=== PATIENT | female | born 1990 | race African-American/Black ===

== ENCOUNTER 2016-07-25 08:00 | Inpatient (IN) | payer OTHER ==
[2016-07-25] MEDS ORDERED: ELECTROLYTE-148 SOLN 500 ML IV ONE (08:05)
[2016-07-25] MEDS ORDERED: CITRIC ACID/SODIUM CITRATE 30 ML UNIT-DOSE CUP PO ONE (08:05)
[2016-07-25] MEDS ORDERED: ELECTROLYTE-148 SOLN 1,000 ML IV SCH (08:35)
[2016-07-25 08:58] VITALS: BMI 37.8
--- NOTE | 2016-07-25 09:38 | HP ---
Past Medical History - Primary Care Physician PCP:: Raji Camargo - Admission Chief Complaint: 26 yo P2 with twin at EGA 36w5d admitted for repeat section due to chronic HTN with superimposed preeclampsia. Pt has been having frequent headaches, abdominal pain. History of Present Illness: complicated by twin gestation late care Chronic HTN superimposed preeclampsia Asthma Anemia prior preg with PEC x 2 prior section x 1 History Source: Patient, Medical Record Limitations to Obtaining History: No Limitations - Past Medical History Cardiovascular: Yes: AFIB, HTN Pulmonary: Yes: Asthma Gastrointestinal: No: Ascites, Cancer, Constipation, Crohn's Disease, Diverticulitis, Diverticulosis, Esophageal Varices, Gastritis, GERD, GI Bleed, Hemorrhoids, Hiatal Hernia, Inflamatory Bowel Disease, Irritable Bowel Disease, Pancreatitis, Peptic Ulcer Disease, Ulcerative Colitis, Other Hepatobiliary: No: Cirrhosis, Cholelithiasis, Cholecystitis, Choledocholithiasis , Hepatitis A, Hepatitis B, Hepatitis C, Other Renal/: No: Renal Failure, Renal Inusuff, BPH, Cancer, Hematuria, Hemodialysis , Neurogenic Bladder, Renal Calculi, UTI, Other ...: 6 ...Para: 2 ...Term: 1 ...: 1 ...Spon : 3 ...Induced : 0 ...Multiple Gestation: 0 ...EDC by Sono: 08/17/16 Heme/Onc: Yes: Anemia Infectious Disease: No: AIDS, C-Diff, Herpes Zoster, HIV, MRSA, STD's, Tuberculosis, VREF, Other Psych: No: Addictions, Anxiety, Bipolar, Depression, Panic, Psychosis, Schizophrenia, Other Musculoskeletal: No: Bursitis, Chronic low back pain, Hemiparesis, Hemiplegia, Osteoarthritis, Paraplegia, Other Rheumatology: No: Fibromyalgia, Gout, Lupus, Rheumatoid Arthritis, Sarcoidosis, Vasculitis, Other ENT: No: Allergic Rhinitis, Sinusitis, Other Endocrine: No: Pyatt's Disease, [place]'s Disease, Diabetes Insipidus, Diabetes Mellitus, Hyperparathyroidism, Hyperthyroidism, Hypothyroidism, Osteopenia, SIADH, Other Dermatology: No: Basal Cell, Cellulitis, Eczema, Melanoma, Psoriasis, Squamous Cell, Other - Past Surgical History Past Surgical History: Yes: (2011) Hx Myomectomy: No Hx Transabdominal Cerclage: No - Smoking History Smoking history: Never smoked Have you smoked in the past 12 months: No Aproximately how many cigarettes per day: 0 - Alcohol/Substance Use Hx Alcohol Use: No History of Substance Use: reports: None - Social History Usual Living Arrangement: Yes: With Child ADL: Independent History of Recent Travel: No Home Medications - Allergies Allergies/Adverse Reactions: Allergies Allergy/AdvReac Type Severity Reaction Status Date / Time Shellfish Allergy Severe Difficulty Verified 07/16/16 16:25 Breathing nuts Allergy Severe Difficulty Uncoded 07/16/16 16:25 Breathing - Home Medications Home Medications: Ambulatory Orders Albuterol 0.083% Nebulizer Germania [Ventolin 0.083%] 1 neb NEB Q4H 09/22/15 Labetalol HCl 200 mg PO BID 09/22/15 Aspirin [ASA -] 325 mg PO DAILY #30 tablet 12/03/15 Family Disease History - Family Disease History Family History: Unremarkable Review of Systems - Review of Systems Constitutional: reports: No Symptoms Eyes: reports: No Symptoms HENT: reports: No Symptoms Neck: reports: No Symptoms Cardiovascular: reports: No Symptoms Respiratory: reports: No Symptoms Gastrointestinal: reports: No Symptoms Genitourinary: reports: No Symptoms Breasts: reports: No Symptoms Reported Musculoskeletal: reports: No Symptoms Integumentary: reports: No Symptoms Neurological: reports: No Symptoms Endocrine: reports: No Symptoms Hematology/Lymphatic: reports: No Symptoms Psychiatric: reports: No Symptoms Pain Intensity: 2 Physical Exam - Maternity Vital Signs: Vital Signs Temperature 98.2 F 07/25/16 08:00 Pulse Rate 83 07/25/16 08:00 Respiratory Rate 20 07/25/16 08:00 Blood Pressure 146/88 07/25/16 08:00 O2 Sat by Pulse Oximetry (%) Constitutional: Yes: Well Nourished, No Distress, Calm Eyes: Yes: WNL, Conjunctiva Clear HENT: Yes: WNL, Atraumatic, Normocephalic Neck: Yes: WNL, Supple, Trachea Midline Cardiovascular: Yes: WNL, Regular Rate and Rhythm Lungs: Clear to auscultation, Normal air movement Breast(s): Yes: WNL - Abdominal Exam/OB Fundal Height: 39 Number of Fetuses: Multiple Contractions: Yes Regularity: Irritability Intensity: Mild Monitor Mode: External Heart Rate Location: Midline Category: I Accelerations: Non-Uniform Decelerations: None - Vaginal Exam/OB Vaginal Bleediing: No Speculum Exam: No Amniotic Membrane Status: Intact - Physical Exam Musculoskeletal: Yes: WNL Edema: Yes Edema: LLE: 1+, RLE: 1+ Integumentary: Yes: WNL Deep Tendon Reflex Grade: Normal +2 ...Motor Strength: WNL Psychiatric: Yes: WNL, Alert, Oriented Hemorrhage Risk Assessment - Risk Factors Medium Risk Factors: Yes: Prior , uterine surgery,or multiple laparotomies, Multiple gestation, Obesity (BMI >40) High Risk Factors: Yes: None Risk Score: 3 Risk Level: High Risk Imaging - Results Ultrasound: Report Reviewed Assessment/Plan 26 yo P2 with twin at EGA 36w5d and chronic HTN with superimposed preeclampsia. Pt is admitted for repeat section, per MFM consult. The risks of surgery were explained to pt. We discussed at length the risks of infection, hemorrhage, injury to underlying organs and/or structures, injury or morbidity to fetuses, etc. The pt verbalized her understanding and requested to proceed.
[2016-07-25] MEDS ORDERED: BENZOCAINE 28 GM HEMORRHOIDAL OINTMENT TP PRN (10:39)
[2016-07-25] MEDS ORDERED: oxyCODONE HCL 5 MG TABLET PO PRN (10:39)
[2016-07-25] MEDS ORDERED: BENZOCAINE 20% 57 GM BOTTLE TP PRN (10:39)
[2016-07-25] MEDS ORDERED: METHYLERGONOVINE MALEATE 0.2 MG/1 ML AMP IM PRN ×2 (10:39→12:56)
[2016-07-25] MEDS ORDERED: IBUPROFEN 800 MG/8 ML IJ IVPB PRN (10:39)
[2016-07-25] MEDS ORDERED: ONDANSETRON 4 MG/2 ML VIAL IVPB PRN (12:17)
[2016-07-25 12:43] LABS: ARTERIAL BLOOD GAS BASE EXCESS -3.8 meq/l (-2-2); ARTERIAL BLOOD GAS HCO3 26.1 meq/L (22-26); LPM/O2% 21%; PT. ON O2? NO
[2016-07-25 12:44] LABS: TYPE OF O2 ROOM AIR
[2016-07-25 12:45] LABS: ARTERIAL BLOOD GAS pH 7.21 (7.35-7.45)
[2016-07-25 12:46] LABS: ARTERIAL BLD GAS O2 SATURATION 6.3 % (90-98.9); ARTERIAL BLOOD GAS PO2 10.9 mmHg (80-100)
[2016-07-25 12:50] LABS: ARTERIAL BLOOD GAS BASE EXCESS -2.9 meq/l (-2-2); ARTERIAL BLOOD GAS HCO3 23.9 meq/L (22-26); ARTERIAL BLOOD GAS PO2 26.9 mmHg (80-100); LPM/O2% 21%; PT. ON O2? NO; TYPE OF O2 ROOM AIR
[2016-07-25 12:53] LABS: ARTERIAL BLOOD GAS BASE EXCESS -2.2 meq/l (-2-2); ARTERIAL BLOOD GAS HCO3 23.8 meq/L (22-26); ARTERIAL BLOOD GAS pH 7.32 (7.35-7.45); LPM/O2% 21%; PT. ON O2? NO; TYPE OF O2 ROOM AIR
[2016-07-25 12:54] LABS: ARTERIAL BLD GAS O2 SATURATION 48.5 % (90-98.9); ARTERIAL BLOOD GAS PO2 23.8 mmHg (80-100)
[2016-07-25] MEDS ORDERED: SIMETHICONE 80 MG TAB.CHEW (FP) PO PRN (12:56)
[2016-07-25] MEDS ORDERED: IBUPROFEN 600 MG TABLET (FP) PO PRN (12:56)
[2016-07-25] MEDS: OXYTOCIN 20 UNITS in 0.9% NS 1,000 ML IV SCH ×2 (14:15→22:52)
[2016-07-25] MEDS ORDERED: CEFAZOLIN (PRE-DOCKED) 50 ML IVPB ONE (16:55)
[2016-07-25] MEDS: CEFAZOLIN 1 GM/D5W 50 ML IVPB SCH (17:18)
--- NOTE | 2016-07-25 20:42 | OP ---
DATE OF OPERATION: 07/25/2016 PREOPERATIVE DIAGNOSIS: with twin gestation at estimated gestational age of 36 weeks and 5 days, chronic hypertension with superimposed preeclampsia, previous section, maternal obesity affecting management. POSTOPERATIVE DIAGNOSIS: with twin gestation at estimated gestational age of 36 weeks and 5 days, chronic hypertension with superimposed preeclampsia, previous section, maternal obesity affecting management. Delivered. PROCEDURE: Repeat low transverse section via Pfannenstiel skin incision. SURGEON: Raji Camargo M.D. VOICE SYSTEMS ENGINEER: Guy Pichardo M.D. ANESTHESIOLOGIST: ANESTHESIA: Spinal. INTRAVENOUS FLUIDS: 1100 mL. URINE OUTPUT: 550 mL. ESTIMATED BLOOD LOSS: 700 mL. PATHOLOGY: Placenta. COMPLICATIONS: None. FINDINGS: Normal uterus, fallopian tubes, and ovaries. Baby A in oblique presentation with head on maternal right. Baby B in transverse presentation delivered by breech extraction. Apgars 9 and 9 for both babies. Normal placenta. No meconium in amniotic fluids. PROCEDURE: The patient was met preoperatively. Risks, benefits, and alternatives of surgery were discussed in detail. All questions were answered. The patient was brought to the OR with the IV running. She was placed on the surgical table in a sitting position. The spinal anesthesia was achieved without difficulty. The patient was then placed on a surgical table in the supine position with a leftward tilt. The patient was prepped and draped in the usual sterile fashion. A Reis catheter was left to drain to gravity. A timeout procedure was conducted as per standard protocol. The surgeon then proceeded with the operation. A Pfannenstiel skin incision was made with the knife along the prior scar. The incision was taken down to the level of fascia. The fascia was incised in the midline. The incision was extended bilaterally using Villatoro scissors. The fascia was then dissected away from the rectus muscles using sharp and blunt dissection. The rectus muscles were in the midline. The peritoneum was identified and entered sharply. The peritoneal incision was extended superiorly and inferiorly. The bladder was then dissected away from the lower uterine segment using sharp dissection. The bladder was reflected downwards using a Obinna retractor. The uterus was incised transversely in the lower uterine segment. The uterine incision was extended bilaterally using bandage scissors. The amniotic sac of baby A was ruptured. No meconium noted. Baby A was converted to vertex presentation and delivered without complications. The amniotic sac of baby B was then ruptured, and the baby B was delivered by breech extraction without complication. The babies were crying spontaneously and handed to the waiting marketing ambassador. The placentas were then delivered manually and without complications. The uterus was cleared of all clots and debris using moist laparotomy laps. The uterine incision was repaired using 0 Biosyn suture in a running, locking stitch. The uterine incision was then imbricated using a secondary layer of closure with 0 Biosyn suture. Good hemostasis was noted. The bladder peritoneum was also approximated using 2-0 chromic suture. The operative site was irrigated using copious amounts of normal saline. Once the saline was aspirated, good hemostasis was noted. The fascia was closed using a 0 Vicryl suture with good hemostasis and approximation. The rectus muscles were approximated using several interrupted 2-0 chromic sutures. The subcutaneous adipose tissues were approximated to eliminate space. The skin was closed using a 4-0 Vicryl suture in a subcutaneous stitch without complications. Sponge, lap, and needle counts were correct. Patient was transferred to recovery room in stable condition. Cale [id number]
[2016-07-26] MEDS ORDERED: CEFAZOLIN (PRE-DOCKED) 50 ML IVPB ONE ×2 (01:25→09:03)
[2016-07-26] MEDS: CEFAZOLIN 1 GM/D5W 50 ML IVPB SCH ×2 (01:32→09:19)
[2016-07-26] MEDS: ACETAMINOPHEN 325 MG TABLET (FP) PO PRN ×2 (08:17→21:22)
--- NOTE | 2016-07-26 08:17 | PN ---
Progress Note (short form) - Note Progress Note: Post op day#1.S/P C section under spinal anesthesia with duramorph uneventful.Patient stable and c/o some pain for which she is on medication.No any anesthesia related problem.Patient DC from the anesthesia care.
[2016-07-26] MEDS: IBUPROFEN 600 MG TABLET (FP) PO PRN ×2 (08:18→21:23)
[2016-07-26] MEDS: SIMETHICONE 80 MG TAB.CHEW (FP) PO PRN ×2 (08:18→21:22)
--- NOTE | 2016-07-26 09:08 | PN ---
Post Progress Note - Subjective Subjective: 26 yo P4 now s/p Repeat c/section POD # 1 pain is under better control now sitting in the chair voided, ambulated to the bathroom reports + flatus Post Day: 1 Type of Delivery: Repeat C/S Vital Signs: Vital Signs Temperature 97.9 F 07/26/16 06:00 Pulse Rate 100 H 07/26/16 06:00 Respiratory Rate 18 07/26/16 06:00 Blood Pressure 127/81 07/26/16 06:00 O2 Sat by Pulse Oximetry (%) 100 07/25/16 14:00 Breast Exam: Yes: Soft Uterus: Yes: Fundus Firm, Non-tender Incision: Yes: Dressing dry and intact Abdomen/GI: Yes: Tender (protruberrant, obeese abdomen), Passing flatus Lochia: Yes: Rubra Lochia, amount: Small Extremities: Yes: Calves non-tender Assessment/Plan 26 yo P4 now, s/p repeat c/s @ 36wks with twins, chronic HTN, superimposed Preeclampsia VSS, Afibrile BP wnl, on Labetalol 200mg BID pregestationaly will restart Will follow labs One baby is a boy for Circumcision Encourage ambulation Routine care
[2016-07-26] MEDS: ENOXAPARIN NA (PORCINE) 40 MG/0.4 ML DISP.SYRIN SQ SCH (09:21)
[2016-07-26] MEDS: PRENATAL VITAMINS W/ FOLIC ACID TABLET (FP) PO SCH (09:24)
[2016-07-26] MEDS ORDERED: BISACODYL 10 MG SUPP.RECT RC PRN ×2 (10:39→12:56)
[2016-07-26 13:47] LABS: BASOPHIL 0.6 % (0-2.0); EOSINOPHIL 0.8 % (0-4.5); MCH 23.2 pg (25.7-33.7); MCHC 30.3 g/dl (32.0-36.0); MEAN CELL VOLUME 76.7 fl (80-96); MEAN PLT VOLUME 8.7 fl (7.5-11.1); NEUTROPHILS 82.6 % (42.8-82.8); PLATELET COUNT 299 K/MM3 (134-434); RDW 16.3 % (11.6-15.6); WHITE BLOOD COUNT 17.9 K/mm3 (4.0-10.0)
[2016-07-26] MEDS: LABETALOL HCL 200 MG TABLET (FP) PO SCH (21:22)
[2016-07-27] MEDS: SIMETHICONE 80 MG TAB.CHEW (FP) PO PRN ×3 (07:28→20:09)
[2016-07-27] MEDS: oxyCODONE HCL 5 MG TABLET PO PRN ×3 (07:28→23:08)
[2016-07-27] MEDS: ACETAMINOPHEN 325 MG TABLET (FP) PO PRN ×3 (07:31→20:15)
[2016-07-27] MEDS: ENOXAPARIN NA (PORCINE) 40 MG/0.4 ML DISP.SYRIN SQ SCH (09:14)
[2016-07-27] MEDS: PRENATAL VITAMINS W/ FOLIC ACID TABLET (FP) PO SCH (09:14)
[2016-07-27] MEDS: LABETALOL HCL 200 MG TABLET (FP) PO SCH ×2 (09:14→21:24)
--- NOTE | 2016-07-27 15:55 | PN ---
Post Progress Note - Subjective Subjective: No complaints, feels well. Post Day: 2 Type of Delivery: Repeat C/S Vital Signs: Vital Signs Temperature 98.1 F 07/27/16 08:08 Pulse Rate 97 H 07/27/16 08:08 Respiratory Rate 20 07/27/16 08:08 Blood Pressure 135/78 07/27/16 08:08 O2 Sat by Pulse Oximetry (%) 100 07/25/16 14:00 Breast Exam: Yes: Soft Uterus: Yes: Fundus Firm, Fundus below umbilicus, Non-tender Incision: Yes: Sutures intact Abdomen/GI: Yes: Abdomen soft, Passing flatus, Tolerating PO Lochia: Yes: Rubra Lochia, amount: Small Extremities: Yes: Edema (trace) Perineum: Yes: Intact Activity: Ambulating - Labs Labs: CBC WBC 17.9 K/mm3 (4.0-10.0) H D 07/26/16 09:55 RBC 4.30 M/mm3 (3.60-5.2) 07/26/16 09:55 Hgb 10.0 GM/dL (10.7-15.3) L 07/26/16 09:55 Hct 33.0 % (32.4-45.2) 07/26/16 09:55 MCV 76.7 fl (80-96) L 07/26/16 09:55 MCHC 30.3 g/dl (32.0-36.0) L 07/26/16 09:55 RDW 16.3 % (11.6-15.6) H 07/26/16 09:55 Plt Count 299 K/MM3 (134-434) 07/26/16 09:55 MPV 8.7 fl (7.5-11.1) 07/26/16 09:55 Neutrophils % 82.6 % (42.8-82.8) 07/26/16 09:55 Lymphocytes % 7.5 % (8-40) L D 07/26/16 09:55 Monocytes % 8.5 % (3.8-10.2) 07/26/16 09:55 Eosinophils % 0.8 % (0-4.5) 07/26/16 09:55 Basophils % 0.6 % (0-2.0) 07/26/16 09:55 Assessment/Plan 26 yo female POD#2 s/p repeat LT C/S, doing well stable, afebrile. care instructions reviewed. Continue routine postop care. Ambulation encouraged
[2016-07-27] MEDS: IBUPROFEN 600 MG TABLET (FP) PO PRN (20:11)
[2016-07-27] MEDS: SENNOSIDES/DOCUSATE COMBO (SENNA PLUS) TABLET (UD) PO PRN (21:24)
[2016-07-28 08:47] LABS: BASOPHIL 0.7 % (0-2.0); MCH 23.4 pg (25.7-33.7); MCHC 30.8 g/dl (32.0-36.0); MEAN CELL VOLUME 75.8 fl (80-96); NEUTROPHILS 77.9 % (42.8-82.8); PLATELET COUNT 345 K/MM3 (134-434); RDW 16.4 % (11.6-15.6); WHITE BLOOD COUNT 13.2 K/mm3 (4.0-10.0)
--- NOTE | 2016-07-28 09:13 | PN ---
Post Progress Note - Subjective Subjective: Patient without acute complaints. Denies headaches, lightheaded or dizziness. No change in vision. Reports tolerating oral intake without nausea or vomiting. Ambulating without dizziness. Denies fevers or chills. Pain well controlled with oral pain medication. Going to try to breastfeed today. Passing flatus. Post Day: 3 Type of Delivery: Repeat C/S Vital Signs: Vital Signs Temperature 98.4 F 07/27/16 22:00 Pulse Rate 104 H 07/27/16 22:00 Respiratory Rate 20 07/27/16 22:00 Blood Pressure 147/85 07/27/16 22:00 O2 Sat by Pulse Oximetry (%) 100 07/25/16 14:00 Breast Exam: Yes: Engorged Uterus: Yes: Fundus Firm, Fundus below umbilicus Incision: Yes: Sutures intact. No: Redness, Oozing Abdomen/GI: Yes: Abdomen soft, Passing flatus, Tolerating PO. No: Tender Lochia: Yes: Serosa Lochia, amount: Small Extremities: Yes: Calves non-tender. No: Edema Activity: Ambulating - Labs Labs: CBC WBC 13.2 K/mm3 (4.0-10.0) H 07/28/16 08:00 RBC 4.12 M/mm3 (3.60-5.2) 07/28/16 08:00 Hgb 9.6 GM/dL (10.7-15.3) L 07/28/16 08:00 Hct 31.2 % (32.4-45.2) L 07/28/16 08:00 MCV 75.8 fl (80-96) L 07/28/16 08:00 MCHC 30.8 g/dl (32.0-36.0) L 07/28/16 08:00 RDW 16.4 % (11.6-15.6) H 07/28/16 08:00 Plt Count 345 K/MM3 (134-434) 07/28/16 08:00 MPV 8.0 fl (7.5-11.1) 07/28/16 08:00 Neutrophils % 77.9 % (42.8-82.8) 07/28/16 08:00 Lymphocytes % 12.6 % (8-40) D 07/28/16 08:00 Monocytes % 5.8 % (3.8-10.2) 07/28/16 08:00 Eosinophils % 3.0 % (0-4.5) D 07/28/16 08:00 Basophils % 0.7 % (0-2.0) 07/28/16 08:00 Assessment/Plan 26 yo POD # 3 s/p repeat delivery, afebrile, vital signs stable, doing well 1.Patient desires DC tomorrow 2. cHTN, will continue labetalol 3. mild tachycardia overnight, now normal rate. Will monitor 4. Will continue to monitor
[2016-07-28] MEDS: ENOXAPARIN NA (PORCINE) 40 MG/0.4 ML DISP.SYRIN SQ SCH (10:00)
[2016-07-28] MEDS: PRENATAL VITAMINS W/ FOLIC ACID TABLET (FP) PO SCH (10:00)
[2016-07-28] MEDS: LABETALOL HCL 200 MG TABLET (FP) PO SCH ×2 (10:00→21:26)
[2016-07-28] MEDS ORDERED: oxyCODONE HCL 5 MG TABLET ONE (21:25)
[2016-07-28] MEDS: oxyCODONE HCL 5 MG TABLET PO PRN (21:26)
[2016-07-28] MEDS: ACETAMINOPHEN 325 MG TABLET (FP) PO PRN (21:28)
[2016-07-28] MEDS: SENNOSIDES/DOCUSATE COMBO (SENNA PLUS) TABLET (UD) PO PRN (21:31)
[2016-07-29] MEDS: ACETAMINOPHEN 325 MG TABLET (FP) PO PRN (07:29)
[2016-07-29] MEDS: SIMETHICONE 80 MG TAB.CHEW (FP) PO PRN (07:29)
[2016-07-29] MEDS: IBUPROFEN 600 MG TABLET (FP) PO PRN (07:30)
--- NOTE | 2016-07-29 08:03 | PN ---
Progress Note (short form) - Note Progress Note: c/o breast engorgement, no dysuria, had bm CBC, BMP 07/28/16 08:00 Last Vital Signs Temp Pulse Resp BP Pulse Ox 100.5 F H 94 H 18 145/83 100 07/29/16 07:32 07/29/16 06:00 07/29/16 06:00 07/29/16 06:00 07/25/16 14:00 abdomen soft, no distension, no cva, uterus firm incision dry, clean ,no discharge lochia mill no calf tenderness impression low grade fever, possible secondary to breast engorgement plan cbc , breast pumping, revaluate
[2016-07-29 08:34] LABS: BASOPHIL 0.8 % (0-2.0); EOSINOPHIL 4.7 % (0-4.5); MCH 24.2 pg (25.7-33.7); MCHC 32.1 g/dl (32.0-36.0); MEAN CELL VOLUME 75.2 fl (80-96); MEAN PLT VOLUME 8.1 fl (7.5-11.1); NEUTROPHILS 76.6 % (42.8-82.8); PLATELET COUNT 332 K/MM3 (134-434); RDW 15.9 % (11.6-15.6); WHITE BLOOD COUNT 10.3 K/mm3 (4.0-10.0)
[2016-07-29 08:38] VITALS: BP 139/85; PULSE 103; TEMP 98.6
--- NOTE | 2016-07-29 08:51 | DS ---
Physical Exam-AERIAL HURRICANE HUNTER Vital Signs: Vital Signs Temperature 98.6 F 07/29/16 08:36 Pulse Rate 103 H 07/29/16 08:36 Respiratory Rate 20 07/29/16 08:36 Blood Pressure 139/85 07/29/16 08:36 O2 Sat by Pulse Oximetry (%) 100 07/25/16 14:00 ....Post : Yes: Uterus firm, Uterus non-tender, Slight lochia rubra Edema: No Wound/Incision: Yes: Clean/Dry, Well Approximated, Sutures Intact Labs: CBC, BMP 07/29/16 08:02 Delivery - Delivery Section: Primary (twins), Low Flap Transverse Type of Anesthesia: Spinal Episiotomy/Laceration: None EBL (cc): 700 Delivery, Single - Stages of Labor Placenta: Yes: Expressed - Feeding Plan Initial Plan: Elected not to breastfeed exclusively throughout hospitalization Delivery, Multiple Births - Stages of Labor Delivery Baby "A" Date: 07/25/16 Time: 12:02 Delivery Baby "B" Date: 07/25/16 Time: 12:05 Placenta/Membranes "A" Date: 07/25/16 Time: 12:07 Placenta/Membranes "B" Date: 07/25/16 Time: 12:07 - Condition of Multiple Births [place] 1 (A) Outsole Handler/Janitorial Assistant Present: Yes Outsole Handler: Shelly Marino Gender: Female Weight: 5 lb 4 oz Position: Right Total Hours ROM (HRS/MINS): 1 min [place] 2 (B) Outsole Handler/Janitorial Assistant Present: Yes Outsole Handler: Shelly Marino Infant Gender: Male Weight: 4 lb 15 oz Total Hours ROM (HRS/MINS): 2 min - [place] 1 (A) 5 Minutes Score: 9 [place] 1 (A) 1 Minute Score: 9 2 (B) 1 Minute Score: 9 2 (B) 5 Minutes Score: 9 Discharge Summary Reason For Visit: C/SECTION Procedures: Principal: primary LST c/s Condition: Good - Instructions Diet, Activity, Other Instructions: regular diet, follow up office 1 week Referrals: Raji Camargo MD [Staff Physician] - Disposition: HOME - Home Medications Comprehensive Discharge Medication List: Ambulatory Orders Albuterol 0.083% Nebulizer Germania [Ventolin 0.083%] 1 neb NEB Q4H 09/22/15 Labetalol HCl 200 mg PO BID 09/22/15 Aspirin [ASA -] 325 mg PO DAILY #30 tablet 12/03/15 Ibuprofen [Motrin -] 600 mg PO QID #28 tablet 07/28/16
[2016-07-29] MEDS: ENOXAPARIN NA (PORCINE) 40 MG/0.4 ML DISP.SYRIN SQ SCH (09:07)
[2016-07-29] MEDS: PRENATAL VITAMINS W/ FOLIC ACID TABLET (FP) PO SCH (09:07)
[2016-07-29] MEDS: LABETALOL HCL 200 MG TABLET (FP) PO SCH (09:07)
[2016-07-29 09:41] LABS: HYPOCHROMIA 1+; PLATELET ESTIMATE ADEQUATE (NORMAL); POLYCHROMASIA FEW; TEAR DROP CELLS FEW
--- NOTE | 2016-07-29 12:55 | PATH ---
Surgical Pathology Report Patient Name: RAYMOND MICHAEL Med. Rec. 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 Specimen(s) Received PLACENTA Clinical History , 36.5 weeks twin gestation, SPABx3, 06/11; history of preeclampsia, asthma, obesity, anemia; section 07/13, ACL repair 2008 Repeat c/section Final Diagnosis TWIN PLACENTA, DELIVERY: DIAMNIOTIC DICHORIONIC TWIN PLACENTA WITH FUSED DISCS: PLACENTA TWIN A: INTACT THIRD TRIMESTER PLACENTA WITH MILD INCREASE IN PREVILLOUS, PERIVILLOUS, AND PRECHORIONIC FIBRIN DEPOSITION, FOCAL CYSTIC LESIONS, THREE VESSEL UMBILICAL CORD, AND UNREMARKABLE PLACENTAL MEMBRANES. PLACENTA TWIN B: FOCALLY DISRUPTED THIRD TRIMESTER PLACENTA WITH FOCAL INFARCT, MILD PREVILLOUS, PERIVILLOUS, AND PRECHORIONIC FIBRIN DEPOSITION, THREE VESSEL UMBILICAL CORD, AND PLACENTAL MEMBRANES FOCAL EARLY ACUTE CHORIOAMNIONITIS. Electronically Signed Agustin Johnson M.D. Gross Description Received fresh labeled "placenta" is a twin placenta comprised of 2 fused discs, by dividing membranes. The dividing membranes are choi and opaque. The placentas are undesignated. The disc weighs 595 grams. Arbitrarily designated "placenta A" measures 13.5 x 10.5 x 1.7 cm. The attached membranes are choi, translucent with focal opacities and insert marginally. The umbilical cord measures 14 cm in length and averages 0.9 cm in diameter. The cord inserts eccentrically, 3.5 cm to the nearest margin. No true knots or strictures are identified. Cut surface of the umbilical cord reveals 3 vessels. The surface is cutler-blue with fibrin deposition and appropriate caliber vessels. The maternal surface is red-brown and intact. Sectioning reveals red-brown, spongy parenchyma. No focal lesions are identified. Arbitrarily designated "placenta B" measures 16.0 x 10.0 x 2.5 cm. The attached membranes are choi, translucent with focal opacities and insert marginally. The umbilical cord measures 8 cm in length and averages 1.1 cm in diameter. The cord inserts eccentrically, 5.5 cm to the nearest margin. No true knots or strictures are identified. Cut surface of the umbilical cord reveals 3 vessels. The surface is cutler-blue with fibrin deposition and appropriate caliber vessels. The maternal surface is red-brown with focal defects. Sectioning reveals a 1.4 cm in greatest dimension choi intraparenchymal lesion. The remaining placental parenchyma is red-brown and spongy. Industrial Renderer sections are submitted in 8 cassettes as follows: 1-Placenta "A" membrane rolls and umbilical cord; 2-3-full thickness sections of placenta "A"; 4-dividing membranes; 5-placenta "B" membrane rolls and umbilical cord; 6-lesion from placenta "B"; 7-8-full thickness sections of placenta "B". 07/28/2016 [facility]07/28/2016
--- NOTE | 2016-07-29 18:10 | PN ---
Mental Health Exam - Mental Status Exam Alert and Oriented to: Time, Place, Person Cognitive Function: Grossly Intact Patient Appearance: Well Groomed Mood: Happy Affect: Appropriate Patient Behavior: Passive, Talkative, Appropriate, Cooperative Speech Pattern: Clear Voice Loudness: Normal Thought Process: Intact Thought Disorder: Not Present Hallucinations: None Homicidal Ideation: None Insight/Judgement: Good Appetite: Good (eating better.) Muscle strength/Tone: Normal Gait/Station: Normal (slowed gait.)
--- NOTE | 2016-07-29 18:17 | PN ---
Progress Note (short form) - Note Progress Note: Called to see 26 yo female after delivery of twins on Monday, under care of raleigh Camargo. No psychiatric history at present. No substance use, no smoking history. Patient has episode of tactfulness yesterday,in light of baby girl having an nasal blockage , needing advanced intervention. Client observed in room surrounded by her mother, father of the twins also. Problem List - Problems (1) Tearfulness Assessment/Plan: patient is assessed by proposal lead writer, currently denies SI, Hi or infantacide. Client mood is euthymic. She is recieving support from her family. Will see dr Camargo on monday. Follow up with social science professor/director of casework services next week also. Communicated with LONI Whaley on post floor. patient is planned for discharge home today. Code(s): R45.89 - OTHER SYMPTOMS AND SIGNS INVOLVING EMOTIONAL STATE
== END 2016-07-29 18:35 | disposition home or self-care (01) | DRG 540 ==
LOC: JLDR 08:00 → J3W 14:43
PROVIDERS: ADMIT Obstetrics & Gynecology; ATTEND Obstetrics & Gynecology
PROC: 10D00Z1 Extraction of Products of Conception, Low, Open Approach (ICD-10-PCS; principal; 2016-07-25)
DX: O11.3 Pre-existing hypertension with pre-eclampsia, third trimester (principal); O34.211 Maternal care for low transverse scar from previous cesarean delivery; N85.8 Other specified noninflammatory disorders of uterus; Z3A.36 36 weeks gestation of pregnancy; O60.14X0 Preterm labor third trimester with preterm delivery third trimester, not applicable or unspecified; O30.003 Twin pregnancy, unspecified number of placenta and unspecified number of amniotic sacs, third trimester; E66.8 Other obesity; Z68.37 Body mass index [BMI] 37.0-37.9, adult; O41.1230 Chorioamnionitis, third trimester, not applicable or unspecified; Z37.2 Twins, both liveborn
CPT/HCPCS: 36415; 36600; 82803; 85025; 88307-TC

== ENCOUNTER 2016-08-23 14:59 | Emergency (ER) | payer OTHER ==
[2016-08-23 15:33] VITALS: BMI 35.0
--- NOTE | 2016-08-23 16:00 | PDOC ---
History of Present Illness - General History Source: Patient Exam Limitations: No Limitations - History of Present Illness Initial Comments: 08/23/16 16:23 The patient is a 26 year old female, with significant past medical history of C- section (07/25/16) , asthma, HTN, who presents today complaining of intermittent numbness and tingling in her arms bilaterally since delivering her twins 1 month ago. She states that numbness and tingling began in her hands and is now radiating to her arms. When the numbness occurs, it lasts for 2 minutes then spontaneously resolves. She notes that she has been juggling the two newborns in her arms. Denies neck pain. Denies headache, lightheadedness, changes in vision. Denies fever, chills, nausea, vomiting. Denies chest pain, SOB. Allergies: shellfish Surgical Hx: (07/25/16) PCP- Dr. Rodrigue Pascal <Crystal Dhaliwal - Last Filed: 08/23/16 17:58> <Spencer Caldwell - Last Filed: 08/23/16 18:28> - General Chief Complaint: Weakness Stated Complaint: LT SIDE NUMBNESS Time Seen by Provider: 08/23/16 15:59 Past History <Crystal Dhaliwal - Last Filed: 08/23/16 17:58> - Past Medical History Asthma: Yes Cancer: No Cardiac Disorders: No Diabetes: No HTN: Yes Suicide Attempt (Hx): No Seizures: No Thyroid Disease: No - Surgical History Abdominal Surgery: Yes - Reproductive History (#): 4 Para: 2 Cervical CA: No Dysfunctional Uterine Bleeding: No Ectopic : No Endometrial CA: No Polycystic Ovaries: No Therapeutic (s) & number: No Tubal Ligation: No Spontaneous : 0 - Immunization History Immunization Up to Date: Yes - Psycho/Social/Smoking Cessation Hx Anxiety: No Suicidal Ideation: No Smoking Status: No Smoking History: Never smoked Have you smoked in the past 12 months: No Number of Cigarettes Smoked Daily: 0 Cigars Per Day: 0 Information on smoking cessation initiated: No Hx Alcohol Use: No Drug/Substance Use Hx: No Substance Use Type: None Hx Substance Use Treatment: No <Spencer Caldwell - Last Filed: 08/23/16 18:28> - Past Medical History Allergies/Adverse Reactions: Allergies Allergy/AdvReac Type Severity Reaction Status Date / Time Shellfish Allergy Severe Difficulty Verified 08/23/16 15:33 Breathing nuts Allergy Severe Difficulty Uncoded 08/23/16 15:33 Breathing Home Medications: Ambulatory Orders Albuterol 0.083% Nebulizer Germania [Ventolin 0.083%] 1 neb NEB Q4H PRN 09/22/15 Labetalol HCl 200 mg PO BID 09/22/15 Aspirin [ASA -] 81 mg PO DAILY 08/23/16 Review of Systems - Review of Systems Able to Perform ROS?: Yes Comments:: 08/23/16 16:24 GENERAL/CONSTITUTIONAL: No fever or chills. No weakness. HEAD, EYES, EARS, NOSE AND THROAT: No change in vision. No ear pain or discharge. No sore throat. CARDIOVASCULAR: No chest pain or shortness of breath. RESPIRATORY: No cough, wheezing, or hemoptysis. GASTROINTESTINAL: No nausea, vomiting, diarrhea or constipation. GENITOURINARY: No dysuria, frequency, or change in urination. MUSCULOSKELETAL: +intermittent numbness and tingling in the upper extremities bilaterally. No joint or muscle swelling or pain. No neck or back pain. SKIN: No rash NEUROLOGIC: No headache, vertigo, loss of consciousness, or change in strength/ sensation. ENDOCRINE: No increased thirst. No abnormal weight change. HEMATOLOGIC/LYMPHATIC: No anemia, easy bleeding, or history of blood clots. ALLERGIC/IMMUNOLOGIC: No hives or skin allergy. <Jamarcus Dhaliwalssica - Last Filed: 08/23/16 17:58> *Physical Exam - Vital Signs Last Vital Signs Temp Pulse Resp BP Pulse Ox 98.6 F 84 20 142/75 100 08/23/16 15:29 08/23/16 15:29 08/23/16 15:29 08/23/16 15:29 08/23/16 15:29 - Physical Exam Comments: 08/23/16 16:25 GENERAL: Awake, alert, and fully oriented, in no acute distress HEAD: No signs of trauma EYES: PERRLA, EOMI, sclera anicteric, conjunctiva clear ENT: Auricles normal inspection, hearing grossly normal, nares patent, oropharynx clear without exudates. Moist mucosa NECK: Normal ROM, supple, no lymphadenopathy, JVD, or masses LUNGS: Breath sounds equal, clear to auscultation bilaterally. No wheezes, and no crackles HEART: Regular rate and rhythm, normal S1 and S2, no murmurs, rubs or gallops ABDOMEN: Soft, nontender, normoactive bowel sounds. No guarding, no rebound. No masses EXTREMITIES: Normal range of motion, no edema. No clubbing or cyanosis. No cords, erythema, or tenderness NEUROLOGICAL: Cranial nerves II through XII grossly intact. Normal speech, normal gait SKIN: Warm, Dry, normal turgor, no rashes or lesions noted. <Crystal Dhaliwal - Last Filed: 08/23/16 17:58> - Vital Signs Last Vital Signs Temp Pulse Resp BP Pulse Ox 98.6 F 84 20 142/75 100 08/23/16 15:29 08/23/16 15:29 08/23/16 15:29 08/23/16 15:29 08/23/16 15:29 <Spencer Caldwell - Last Filed: 08/23/16 18:28> ED Treatment Course - LABORATORY CBC & Chemistry Diagram: 08/23/16 16:40 08/23/16 16:40 - RADIOLOGY Radiograph Interpretation: 08/23/16 17:[address] without contrast As reported by Dr. Melvin Yeung Impression: normal CT scan of the head. No evidence of acute intracranial pathology. C-Spine CT without contrast As reported by Dr. Melvin Yeung Impression: normal CT scan of the cervical spine. <Crystal Dhaliwal - Last Filed: 08/23/16 17:58> - LABORATORY CBC & Chemistry Diagram: 08/23/16 16:40 08/23/16 16:40 <Spencer Caldwell - Last Filed: 08/23/16 18:28> *DC/Admit/Observation/Transfer - Attestations Scribe Attestion: 08/23/16 16:25 Documentation prepared by DIMA Guardado, acting as medical office representative for Spencer Caldwell DO. <Crystal Dhaliwal - Last Filed: 08/23/16 17:58> - Discharge Dispostion Admit: No - Attestations Physician Attestion: 08/23/16 16:00 I, Dr. Spencer Caldwell, attest that this document has been prepared under my direction and personally reviewed by me in its entirety. I further attest, that it accurately reflects all work, treatment, procedures and medical decision -making performed by me. <Spencer Caldwell - Last Filed: 08/23/16 18:28> Diagnosis at time of Disposition: Overuse syndrome - Discharge Dispostion Disposition: HOME Condition at time of disposition: Improved - Referrals Referrals: Rodrigue Pascal MD [Primary Care Provider] - - Patient Instructions Printed Discharge Instructions: DI for Numbness/tingling Additional Instructions: Angela- All of your tests were good. You have a ton of work and lifting on your plate right now. Find out from your case operator if you can use motrin wile breast feeding. Try to get a little more help with the kids and the chores. Return to us if worse or new symptoms occur. Best- Dr. Spencer Caldwell
[2016-08-23 16:56] LABS: BASOPHIL 0.4 % (0-2.0); EOSINOPHIL 4.4 % (0-4.5); MCH 23.2 pg (25.7-33.7); MCHC 31.4 g/dl (32.0-36.0); MEAN CELL VOLUME 73.9 fl (80-96); MEAN PLT VOLUME 8.4 fl (7.5-11.1); PLATELET COUNT 380 K/MM3 (134-434); RDW 14.3 % (11.6-15.6)
[2016-08-23 16:57] LABS: URINE APPEARANCE CLEAR; URINE BILIRUBIN NEGATIVE (NEGATIVE); URINE BLOOD NEGATIVE (NEGATIVE); URINE COLOR YELLOW; URINE GLUCOSE (UA) NEGATIVE (NEGATIVE); URINE KETONE TRACE (NEGATIVE); URINE NITRITE NEGATIVE (NEGATIVE); URINE PROTEIN NEGATIVE (NEGATIVE); URINE UROBILINOGEN NEGATIVE E.U./dl (0.2-1.0)
[2016-08-23 17:04] LABS: URINE LEUK ESTERASE TRACE (NEGATIVE)
[2016-08-23 17:07] LABS: URINE MUCUS FEW; URINE RBC 3 /hpf (0-3); URINE WBC 15 /hpf (3-5)
[2016-08-23 17:09] LABS: INR 1.06 (0.82-1.09); PROTHROMBIN TIME (PATIENT) 11.7 SEC (9.98-11.88)
[2016-08-23 17:20] LABS: ALBUMIN 3.6 g/dl (3.4-5.0); ANION GAP 9 (8-16); CALCIUM 9.6 mg/dL (8.5-10.1); CO2 30 mmol/L (21-32); CREATININE 0.6 mg/dL (0.55-1.02); GLUCOSE,RANDOM 81 mg/dL (74-106); SGOT/AST 20 U/L (15-37); SGPT/ALT 34 U/L (12-78)
[2016-08-23 17:21] LABS: TROPONIN I < 0.02 ng/ml (0.00-0.05)
[2016-08-23 17:22] LABS: ALK PHOS 86 U/L (45-117); BILIRUBIN,TOTAL 0.2 mg/dL (0.2-1.0); TOT PROT 7.6 g/dl (6.4-8.2)
[2016-08-23 18:52] VITALS: BP 149/89; PULSE 88; TEMP 98.7
--- NOTE | 2016-08-24 12:46 | EKG ---
Test Reason : Blood Pressure : / mmHG Vent. Rate : 082 BPM Atrial Rate : 082 BPM P-R Int : 166 ms QRS Dur : 096 ms QT Int : 388 ms P-R-T Axes : 028 024 015 degrees QTc Int : 453 ms NORMAL SINUS RHYTHM MINIMAL VOLTAGE CRITERIA FOR LVH, MAY BE NORMAL VARIANT SEPTAL INFARCT (CITED ON OR BEFORE 09-MAR-2015) ABNORMAL ECG WHEN COMPARED WITH ECG OF 09-MAR-2015 18:40, PREMATURE VENTRICULAR COMPLEXES ARE NO LONGER PRESENT Confirmed by DARRELL BHAGAT, CARLENE ([id number]) on 08/24/2016 12:45:37 PM Referred By: Confirmed By:CARLENE RAMÍREZ MD
== END 2016-08-23 18:54 | disposition home or self-care (01) ==
LOC: JER 14:59
DX: M70.822 Other soft tissue disorders related to use, overuse and pressure, left upper arm (principal); M70.821 Other soft tissue disorders related to use, overuse and pressure, right upper arm; Y93.F9 Activity, other caregiving
CPT/HCPCS: 36415; 70450-TC; 72125-TC; 80053; 81003; 81015; 82550; 84484; 84703; 85025; 85610; 87086; 93005; 93010; 99283-25

== ENCOUNTER 2018-11-02 20:09 | Emergency (ER) | payer OTHER ==
--- NOTE | 2018-11-02 20:13 | PDOC ---
Rapid Medical Evaluation Medical Evaluation: Allergies Allergy/AdvReac Type Severity Reaction Status Date / Time Shellfish Allergy Severe Difficulty Verified 08/23/16 15:33 Breathing nuts Allergy Severe Difficulty Uncoded 08/23/16 15:33 Breathing I have performed a brief in-person evaluation of this patient. The patient presents with a chief complaint of: c/o L breast pain for few weeks , but got worse last few days; denies nipple discharge, fever, sob Pertinent physical exam findings: Difficult to perform breast exam in triage I have ordered the following: Nothing The patient will proceed to the ED for further evaluation. 11/02/18 20:11
[2018-11-02 20:14] VITALS: BP 132/88; PULSE 81; TEMP 98.2; BMI 33.3
--- NOTE | 2018-11-02 21:18 | PDOC ---
History of Present Illness - General Chief Complaint: Pain Stated Complaint: LT BREAST PAIN Time Seen by Provider: 11/02/18 20:11 History Source: Patient - History of Present Illness Initial Comments: 11/02/18 21:13 Chief complaint: Left breast pain Patient is 28-year-old female with history of hypertension who noticed over the last several weeks that she was having left breast pain to the top of her breast extending into her armpit. Patient has no fever, no discharge, and has not appreciated a lump although she feels that it hurts and there swelling. GENERAL/CONSTITUTIONAL: No fever, weakness. dizziness HEAD, EYES, EARS, NOSE AND THROAT: No change in vision. No ear pain or discharge. No sore throat. CARDIOVASCULAR: No chest pain RESPIRATORY: No shortness of breath or cough GASTROINTESTINAL: No pain, nausea, vomiting, diarrhea or constipation GENITOURINARY: No dysuria MUSCULOSKELETAL: No neck or back pain SKIN: No rash, + left breast pain NEUROLOGIC: No headache, vertigo, loss of consciousness, or loss of sensation. GENERAL: The patient is awake, alert, and fully oriented, in no acute distress. HEAD: Normal with no signs of trauma. EYES: Pupils equal, round and reactive to light, sclera anicteric, conjunctiva clear. ENT: pharynx: no erythema, no exudate, uvula midline NECK: supple CHEST: clear, nontender, rr Breasts are symmetrical, no erythema, no nipple discharge, no palpable masses bilaterally, no lymphadenopathy ABD: soft, nontender BACK: no tenderness or signs of injury EXTREMITIES: Normal range of motion, no edema. NEUROLOGICAL: Normal speech, normal gait. SKIN: Warm, Dry Past History - Past Medical History Allergies/Adverse Reactions: Allergies Allergy/AdvReac Type Severity Reaction Status Date / Time Shellfish Allergy Severe Difficulty Verified 08/23/16 15:33 Breathing nuts Allergy Severe Difficulty Uncoded 08/23/16 15:33 Breathing Home Medications: Ambulatory Orders Albuterol 0.083% Nebulizer Germania [Ventolin 0.083%] 1 neb NEB Q4H PRN 09/22/15 Labetalol HCl 200 mg PO BID 09/22/15 Aspirin [ASA -] 81 mg PO DAILY 08/23/16 Asthma: Yes Cancer: No Cardiac Disorders: No Diabetes: No HTN: Yes Seizures: No Thyroid Disease: No - Surgical History Abdominal Surgery: Yes - Reproductive History (#): 4 Para: 2 Cervical CA: No Dysfunctional Uterine Bleeding: No Ectopic : No Endometrial CA: No Polycystic Ovaries: No Therapeutic (s) & number: No Tubal Ligation: No Spontaneous : 0 - Immunization History Immunization Up to Date: Yes - Suicide/Smoking/Psychosocial Hx Smoking Status: No Smoking History: Never smoked Have you smoked in the past 12 months: No Number of Cigarettes Smoked Daily: 0 Cigars Per Day: 0 Hx Alcohol Use: No Drug/Substance Use Hx: No Substance Use Type: None Hx Substance Use Treatment: No *Physical Exam - Vital Signs Last Vital Signs Temp Pulse Resp BP Pulse Ox 98.2 F 81 19 132/88 100 11/02/18 20:11 11/02/18 20:11 11/02/18 20:11 11/02/18 20:11 11/02/18 20:11 Medical Decision Making - Medical Decision Making 11/02/18 21:14 28-year-old female history of hypertension with ongoing breast pain and tenderness, to the left breast. Exam shows large breasts, no signs of abscess, infection, discharge or palpable mass or lymphadenopathy. Patient called her PULVERIZER OPERATOR to make an appointment and he told her it would be a month for an appointment. I encouraged her to call them back, to follow-up with her regular doctor for closer follow-up. Patient will return to the ER if there is fever, redness or obvious serious issue. No history of early breast cancer in close relatives. Patient just had her period and does not think she is . Discussed issues, findings, results, applicable medications and treatments and follow-up. All these were understood and all questions were answered 11/02/18 21:15 11/02/18 21:20 *DC/Admit/Observation/Transfer Diagnosis at time of Disposition: Breast pain, left - Discharge Dispostion Disposition: HOME Condition at time of disposition: Stable - Referrals Referrals: Rodrigue Pascal MD [Primary Care Provider] - - Patient Instructions Additional Instructions: It is very important for you to follow-up with your underwater roboticist for full evaluation and any imaging. Return to the ER if fever, redness, discharge, feeling sicker or getting much worse and you are unable to see the underwater roboticist yet. You should call them Monday and tell them you were in the emergency department and need close follow- up. If they aren't able help you, see your regular doctor find another underwater roboticist that we'll see you sooner - Post Discharge Activity
== END 2018-11-02 21:27 | disposition home or self-care (01) ==
LOC: JERFT 20:09
DX: N64.4 Mastodynia (principal); I10 Essential (primary) hypertension
CPT/HCPCS: 99281-25